=== PATIENT | male | born 1970 | race African-American/Black ===

== ENCOUNTER 2019-12-21 15:22 | Emergency (ER) | payer BC, MEDICAID ==
[~2019-12-21] VITALS: Ht 180.3 cm; Wt 96.0 kg
[2019-12-21 15:23] VITALS: BP 137/77
== END 2019-12-21 17:27 | disposition home or self-care (01) ==
LOC: ER 15:40
DX: H10.31 Unspecified acute conjunctivitis, right eye (principal)
CPT/HCPCS: 99283

== ENCOUNTER 2019-12-27 16:37 | Emergency (ER) | payer BC ==
[~2019-12-27] VITALS: Ht 180.3 cm; Wt 95.0 kg
[2019-12-27] MEDS ORDERED: FLUORESCEIN SODIUM 1MG/STRIP BOTHEYE ONE (17:15)
[2019-12-27] MEDS ORDERED: TETRACAINE 0.5% OPHTH DROPS 4ML BOTHEYE ONE (17:15)
[2019-12-27] MEDS ORDERED: IBUPROFEN 600MG TABLET PO ONE (17:30)
[2019-12-27] MEDS ORDERED: TETANUS, DIPHTHERIA, PERTUSSIS VAC/PF 0.5ML (>7YR OLD) IM ONE (18:45)
[2019-12-27 19:04] VITALS: BP 136/72
== END 2019-12-27 19:05 | disposition home or self-care (01) ==
LOC: ER 16:37
DX: S05.01XA Injury of conjunctiva and corneal abrasion without foreign body, right eye, initial encounter (principal); I10 Essential (primary) hypertension; E05.90 Thyrotoxicosis, unspecified without thyrotoxic crisis or storm; X58.XXXA Exposure to other specified factors, initial encounter; Y93.89 Activity, other specified; Y92.018 Other place in single-family (private) house as the place of occurrence of the external cause
CPT/HCPCS: 90471; 90715; 99284

== ENCOUNTER 2025-01-27 00:30 | Inpatient (IN) | payer BC ==
[~2025-01-27] VITALS: Ht 177.8 cm; Wt 95.3 kg
[2025-01-27 00:43] VITALS: O2SAT 99
[2025-01-27 02:16] LABS: BASOPHILS % 1.4 % (0.0-2.0); EOSINOPHILS % 2.9 % (0.0-5.0); HEMATOCRIT. 44.0 % (42.0-52.0); HEMOGLOBIN. 14.5 g/dL (14.0-18.0); LYMPHOCYTES % 44.5 % (20.0-50.0); MEAN PLATELET VOLUME 10.0 fl (7.4-10.4); MONOCYTES % 11.5 % (2.0-8.0); NEUTROPHILS % 39.7 % (40.0-76.0); PLATELET 185 x1000/uL (130-400); RED BLOOD CELL COUNT 5.08 mill/uL (4.7-6.1); RED CELL DISTRIBUTION WIDTH 14.8 % (11.6-14.6)
[2025-01-27] MEDS: ONDANSETRON HCL 4MG TABLET PO ONE (02:17)
[2025-01-27] MEDS: ACETAMINOPHEN 500MG TABLET PO ONE (02:18)
[2025-01-27 02:31] LABS: CREATININE 1.0 mg/dL (0.6-1.3); UREA NITROGEN BLOOD 11 mg/dL (9-23)
[2025-01-27 02:32] LABS: PROTEIN TOTAL 7.8 g/dL (6.0-8.3)
[2025-01-27 02:33] LABS: ASPARTATE AMINOTRANSFERASE 23 IU/L (<34); BILIRUBIN DIRECT < 0.1 mg/dL (<=3.0); BILIRUBIN TOTAL 0.2 mg/dL (0.1-1.0)
[2025-01-27 04:42] LABS: TROPONIN I HIGH SENSITIVITY 211 ng/L (3.0-53)
[2025-01-27 05:02] LABS: TROPONIN I HIGH SENSITIVITY 210 ng/L (3.0-53)
[2025-01-27] MEDS ORDERED: ASPIRIN 325MG EC TABLET PO ONE (05:15)
[2025-01-27] MEDS ORDERED: ENOXAPARIN 100MG/ML SYR SUBCUT ONE (05:15)
[2025-01-27 08:00] VITALS: BP 147/89; PULSE 65; RESP 16; TEMP 36.4; O2SAT 100
[2025-01-27] MEDS ORDERED: GUAIFENESIN 200MG/10ML SUGAR FREE UDC PO PRN (08:15)
[2025-01-27] MEDS ORDERED: IPRATROPIUM/ALBUTEROL 0.5-3(2.5)MG/3ML NEB HHN PRN (08:15)
[2025-01-27] MEDS ORDERED: CLONIDINE 0.1MG TABLET PO PRN (08:15)
[2025-01-27] MEDS ORDERED: ACETAMINOPHEN 325MG TABLET PO PRN (08:15)
[2025-01-27] MEDS ORDERED: DOCUSATE SODIUM 100MG CAPSULE PO PRN (08:15)
[2025-01-27] MEDS ORDERED: ONDANSETRON HCL 4MG/2ML INJ IV PRN (08:15)
[2025-01-27] MEDS ORDERED: MAGNESIUM/ALUMINUM HYDROXIDE/SIMETHICONE 30ML UDC PO PRN (08:15)
[2025-01-27] MEDS: PANTOPRAZOLE SODIUM 40 MG/VIAL IV SCH (10:03)
[2025-01-27] MEDS: AMLODIPINE 5MG TABLET PO SCH (10:04)
[2025-01-27] MEDS: ENOXAPARIN 40MG/0.4ML SYR SUBCUT SCH (10:04)
[2025-01-27 12:00] VITALS: BP 156/86; PULSE 62; RESP 16; TEMP 36.3; O2SAT 100
[2025-01-27 12:30] LABS: TRIGLYCERIDE 107 mg/dL (0-150)
[2025-01-27 12:31] LABS: LDL CHOLESTEROL 141 mg/dL (5-100)
[2025-01-27 12:32] LABS: PHOSPHORUS 3.1 mg/dL (2.5-4.9)
[2025-01-27 12:37] LABS: T4 FREE 0.62 ng/dL (0.89-1.76)
[2025-01-27 12:49] VITALS: BP 156/86; PULSE 62; RESP 16; TEMP 36.3624
[2025-01-27 13:16] LABS: TROPONIN I HIGH SENSITIVITY 190 ng/L (3.0-53)
[2025-01-27] MEDS: LACTATED RINGERS 1,000 ML IV SCH (14:41)
[2025-01-27 16:00] VITALS: BP 167/92; PULSE 58; RESP 16; TEMP 36.3; O2SAT 100
[2025-01-27 17:50] LABS: TROPONIN I HIGH SENSITIVITY 185 ng/L (3.0-53)
[2025-01-27 17:51] LABS: TROPONIN I HIGH SENSITIVITY 177 ng/L (3.0-53)
[2025-01-27 19:21] LABS: CLARITY URINE CLEAR (CLEAR); COLOR URINE YELLOW (YELLOW); GLUCOSE URINE NEGATIVE (NEGATIVE); KETONES URINE NEGATIVE (NEGATIVE); LEUKOCYTE ESTERASE URINE NEGATIVE (NEGATIVE); NITRITE URINE NEGATIVE (NEGATIVE); OCCULT BLOOD URINE NEGATIVE (NEGATIVE); PH URINE 6.0 (4.5-8.0); PROTEIN URINE NEGATIVE (NEGATIVE); SPECIFIC GRAVITY URINE 1.020 (1.005-1.030); UROBILINOGEN URINE 0.2 E.U./dL (0.2-1.0)
[2025-01-27 19:22] LABS: *AMPHETAMINES SCREEN URINE NEGATIVE (NEGATIVE); *BARBITURATES SCREEN URINE NEGATIVE (NEGATIVE); *BENZODIAZEPINES SCREEN URINE NEGATIVE (NEGATIVE); *COCAINE SCREEN URINE NEGATIVE (NEGATIVE)
[2025-01-27 19:23] LABS: CANNABINOID URINE SCREEN NEGATIVE (NEGATIVE); ECSTASY MDMA SCREEN URINE NEGATIVE (NEGATIVE); METHADONE URINE SCREEN NEGATIVE (NEGATIVE); OPIATES URINE SCREEN NEGATIVE (NEGATIVE); PHENCYCLIDINE URINE SCREEN NEGATIVE (NEGATIVE)
[2025-01-27 20:00] VITALS: BP 138/86; PULSE 68; RESP 18; TEMP 36.6; O2SAT 99
[2025-01-27] MEDS: ATORVASTATIN CALCIUM 20MG TABLET PO SCH (20:51)
[2025-01-28] VITALS: BP 137/81; PULSE 59; RESP 18; TEMP 37.2; O2SAT 98
[2025-01-28 04:00] VITALS: BP 127/82; PULSE 59; RESP 18; TEMP 37.1; O2SAT 98
[2025-01-28] MEDS: LEVOTHYROXINE SODIUM 25MCG TABLET PO SCH (06:00)
[2025-01-28 07:25] LABS: PROTEIN TOTAL 7.0 g/dL (6.0-8.3)
[2025-01-28 07:26] LABS: ASPARTATE AMINOTRANSFERASE 22 IU/L (<34); BILIRUBIN DIRECT 0.1 mg/dL (<=3.0)
[2025-01-28 07:27] LABS: BILIRUBIN TOTAL 0.5 mg/dL (0.1-1.0)
[2025-01-28 07:30] LABS: CREATININE 1.0 mg/dL (0.6-1.3); UREA NITROGEN BLOOD 10 mg/dL (9-23)
[2025-01-28 08:00] VITALS: BP 155/86; PULSE 60; RESP 20; TEMP 37.1; O2SAT 98
[2025-01-28 12:00] VITALS: BP 132/82; PULSE 84; RESP 18; TEMP 36.2; O2SAT 98
[2025-01-28 16:00] VITALS: BP 140/70; PULSE 85; RESP 18; TEMP 36.2; O2SAT 100
[2025-01-28 20:00] VITALS: BP 135/77; PULSE 61; RESP 17; TEMP 37.2; O2SAT 97
[2025-01-28] MEDS: ACETAMINOPHEN 325MG TABLET PO PRN (20:28)
[2025-01-29] VITALS: BP 153/90; PULSE 60; RESP 16; TEMP 37.2; O2SAT 98
[2025-01-29 04:00] VITALS: BP 137/88; PULSE 64; RESP 17; TEMP 37.1; O2SAT 99
[2025-01-29 08:00] VITALS: BP 144/87; PULSE 60; RESP 20; TEMP 36.4; O2SAT 20
[2025-01-29 08:12] LABS: BASOPHILS % 1.4 % (0.0-2.0); EOSINOPHILS % 2.3 % (0.0-5.0); HEMATOCRIT. 42.5 % (42.0-52.0); HEMOGLOBIN. 14.0 g/dL (14.0-18.0); LYMPHOCYTES % 43.5 % (20.0-50.0); MEAN PLATELET VOLUME 10.6 fl (7.4-10.4); MONOCYTES % 9.8 % (2.0-8.0); NEUTROPHILS % 43.0 % (40.0-76.0); PLATELET 159 x1000/uL (130-400); RED BLOOD CELL COUNT 4.94 mill/uL (4.7-6.1); RED CELL DISTRIBUTION WIDTH 15.0 % (11.6-14.6)
[2025-01-29 08:43] LABS: CREATININE 1.0 mg/dL (0.6-1.3)
[2025-01-29 08:45] LABS: UREA NITROGEN BLOOD 10 mg/dL (9-23)
[2025-01-29 08:47] LABS: PHOSPHORUS 3.1 mg/dL (2.5-4.9)
[2025-01-29 09:52] LABS: TROPONIN I HIGH SENSITIVITY 213 ng/L (3.0-53)
[2025-01-29 12:00] VITALS: BP 129/84; PULSE 52; RESP 15; TEMP 36.3; O2SAT 99
[2025-01-29 16:00] VITALS: BP 136/84; PULSE 54; RESP 18; TEMP 36.2; O2SAT 99
[2025-01-29] MEDS ORDERED: AMLO5TAB88 PO (17:36)
[2025-01-29] MEDS ORDERED: LEVO25TA7 PO (17:36)
[2025-01-29] MEDS ORDERED: ATOR20TA PO (17:36)
[2025-01-29 20:00] VITALS: BP 129/80; PULSE 61; RESP 17; TEMP 36.5; O2SAT 97
[2025-01-30] VITALS: BP 135/76; PULSE 60; RESP 18; TEMP 36.6; O2SAT 96
[2025-01-30 04:00] VITALS: BP 133/74; PULSE 57; RESP 18; TEMP 36.8; O2SAT 97
[2025-01-30 08:00] VITALS: BP 137/78; PULSE 60; RESP 18; TEMP 36.6; O2SAT 98
[2025-01-30 12:00] VITALS: BP 139/84; PULSE 59; RESP 18; TEMP 36.6; O2SAT 100
[2025-01-30] MEDS ORDERED: LEVO25TA7 PO ×2 (12:55→15:06)
[2025-01-30] MEDS ORDERED: ATOR20TA PO ×2 (12:55→15:06)
[2025-01-30] MEDS ORDERED: AMLO5TAB88 PO ×2 (12:55→15:06)
[2025-01-30 15:09] VITALS: BP 139/84; PULSE 59; RESP 18; TEMP 97.8
== END 2025-01-30 16:11 | disposition home or self-care (01) | DRG 391 ==
LOC: ER 00:30 → 5WST 05:05 → EDBEDREQTM 05:09 → EDBEDREQ 05:09 → ENRESERV 05:26
PROVIDERS: ADMIT Hospitalist; ATTEND Hospitalist
DX: K29.00 Acute gastritis without bleeding (principal); I21.A1 Myocardial infarction type 2; E03.9 Hypothyroidism, unspecified; I10 Essential (primary) hypertension; I34.0 Nonrheumatic mitral (valve) insufficiency; E05.90 Thyrotoxicosis, unspecified without thyrotoxic crisis or storm; E78.5 Hyperlipidemia, unspecified; F17.210 Nicotine dependence, cigarettes, uncomplicated; K80.20 Calculus of gallbladder without cholecystitis without obstruction; Z79.899 Other long term (current) drug therapy; Z82.49 Family history of ischemic heart disease and other diseases of the circulatory system; Z83.3 Family history of diabetes mellitus
CPT/HCPCS: 36415; 71045; 76700; 80048; 80061; 80076; 80305; 81003; 83036; 83735; 83880; 84100; 84439; 84443; 84484; 85025; 93005; 93306; 93970; 96374; 99285; A4606; J1650; J2470; J7120; Q0162